=== PATIENT | male | born 1935 | race Caucasian/White ===

== ENCOUNTER 2018-01-17 18:20 | Emergency (ER) | payer OTHER, MEDICARE ==
[~2018-01-17] VITALS: Ht 177.8 cm; Wt 83.9 kg
--- NOTE | 2018-01-17 18:46 | ED GENERAL ADULT ---
History of Present Illness General Chief Complaint: General Adult Stated Complaint: "MEAT WONT GO DOWN THROAT" Source: patient, family Exam Limitations: no limitations Vital Signs & Intake/Output Vital Signs & Intake/Output Vital Signs Date Time Temp Pulse Resp B/P B/P Pulse O2 O2 Flow FiO2 Mean Ox Delivery Rate 01/17 2236 84 16 108/58 95 Room Air 01/17 1955 64 19 145/95 98 Room Air 01/17 1829 98.8 67 18 129/75 97 Room Air ED Intake and Output 01/18 0000 01/17 1200 Intake Total 1000 Output Total Balance 1000 Intake, IV 1000 Patient 185 lb Weight Weight Reported by Patient Measurement Method Allergies Coded Allergies: No Known Allergies (01/17/18) Reconcile Medications Aspirin (Ecotrin*) 81 MG TABLET.DR 1 TAB PO DAILY HEART/BLOOD (Reported) Cholecalciferol (Vitamin D3) (Vitamin D) 1,000 UNIT TABLET 1 TAB PO DAILY SUPPLEMENT (Reported) Cyanocobalamin (Vitamin B-12) 1,000 MCG TABLET 1 TAB PO DAILY SUPPLEMENT ( Reported) Finasteride 5 MG TABLET 1 TAB PO DAILY PROSTATE (Reported) Flaxseed Oil (Flax Oil) 1,000 MG CAPSULE 1 CAP PO DAILY SUPPLEMENT (Reported) Garlic (Garlic Oil) 1,000 MG CAPSULE 1 CAP PO DAILY SUPPLEMENT (Reported) Ibuprofen (Advil) 200 MG CAPSULE 2 CAP PO PRN PAIN (Reported) Lisinopril 5 MG TABLET 1 TAB PO DAILY BP (Reported) Omeprazole 40 MG CAPSULE.DR 1 CAP PO BID GI (Reported) Simvastatin (Simvastatin*) 40 MG TABLET 1 TAB PO QPM CHOLESTEROL (Reported) Tramadol HCl 50 MG TABLET 1 TAB PO BID PAIN (Reported) Turmeric/Turmeric Root Extract (Turmeric 450-50 MG Capsule) (Unknown Strength) CAPSULE (Unknown Dose) PO DAILY SUPPLEMENT (Reported) Triage Note: PT STATES HE HAS A PIECE OF STEAK CAUGHT IN HIS ESPHOGUS ABOUT 1 HOUR AGO. PT STATES HE IS ABLE TO SWOLLOW BUT THE PAIN IS VERY BAD. Triage Nurses Notes Reviewed? yes Onset: Abrupt Duration: hour(s): Timing: recent history HPI: 01/17/18 82-year-old man presents to the emergency department with food impaction. According to the patient he was eating some meat and suddenly had an inability to swallow liquids. He has discomfort in his esophagus but denies chest pain or difficulty breathing. He is sitting upright with a full bowl of saliva that he is been spitting up. He says that he has a history of gastroesophageal reflux and is status post upper endoscopy by Dr. Ray proximally 6 months ago. (Regulo Urrutia DO) Past History Travel History Traveled to [place] past 21 day No Medical History Any Pertinent Medical History? see below for history Gastrointestinal: ACID REFLUX Surgical History Surgical History: non-contributory, multiple orthopedic surgeries Psychosocial History What is your primary language Luxembourger Tobacco Use: Quit >30 days ago ETOH Use: occasional use Illicit Drug Use: denies illicit drug use Family History Hx Contributory? No (Regulo Urrutia DO) Review of Systems Review of Systems Constitutional: Denies: fever. EENTM: Denies: visual changes. Respiratory: Denies: short of breath. Cardiovascular: Denies: chest pain. GI: Reports: see HPI. Genitourinary: Reports: no symptoms. Musculoskeletal: Reports: no symptoms. Skin: Reports: no symptoms. Neurological/Psychological: Reports: no symptoms. Hematologic/Endocrine: Reports: no symptoms. Immunologic/Allergic: Reports: no symptoms. (Regulo Urrutia DO) Physical Exam Physical Exam General Appearance: alert, awake, anxious, moderate distress Head: atraumatic, normal appearance Eyes: Bilateral: normal appearance, PERRL, EOMI. Ears, Nose, Throat: normal pharynx Neck: supple Respiratory: normal breath sounds, chest non-tender, no respiratory distress Cardiovascular: regular rate/rhythm Peripheral Pulses: 4+ radial (R), 4+ radial (L) Gastrointestinal: soft, non-tender Back: normal range of motion Extremities: no edema Neurologic/Psych: no motor/sensory deficits, awake, alert, oriented x 3 Skin: intact, normal color, warm/dry Core Measures ACS in differential dx? No CVA/TIA Diagnosis: No Sepsis Present: No Sepsis Focused Exam Completed? No (Regulo Urrutia DO) Progress Differential Diagnoses I considered the following diagnoses in my evaluation of the patient: [Food impaction, gastroesophageal reflux, peptic ulcer disease] Plan of Care: Current Medications Sig/Gema Start time Last Medication Dose Stop Time Status Admin Nitroglycerin 0.4 MG ONCE ONE 01/18 2000 UNVr 01/17 (Nitrostat) 01/17 Sodium Chloride 1,000 ML ONCE ONE 01/17 1930 AC 01/17 (Normal Saline 0.9%) 01/18 Initial ED EKG: none (Regulo Urrutia DO) Departure Departure Disposition: STILL A PATIENT Condition: Stable Clinical Impression Primary Impression: Food impaction of esophagus Referrals: Oliver NEGRETE,Kaleb Marroquin (PCP/Family) Departure Forms: Customer Survey General Discharge Information Comments The patient was treated with IV fluids and IV glucagon. GI consultation was requested. I spoke with Dr. Recio who will evaluate the patient. The patient was signed out to Dr. Brannon at 7 PM. (Regulo Urrutia DO) Departure Comments 01/17/18, 22:45... pt awake and alert, comfortable, in no discomfort.... pt safe for discharge. (Salud NEGRETE,Norberto Padilla) Critical Care Note Critical Care Note Critical Care Time: 30-74 min (Regulo Urrutia DO)
[2018-01-17] MEDS ORDERED: TRAMADOL HCL50 M1 PO (19:01)
[2018-01-17] MEDS ORDERED: SIMVASTATIN5 M2 PO (19:02)
[2018-01-17] MEDS ORDERED: PANTOPRAZOLE SO40 M1 PO (19:02)
[2018-01-17] MEDS ORDERED: LISINOPRIL5 M1 PO (19:04)
[2018-01-17] MEDS ORDERED: SIMVASTATIN40 M1 PO (19:04)
[2018-01-17] MEDS ORDERED: ASPIRIN EC81 M1 PO (19:04)
[2018-01-17] MEDS ORDERED: OMEPRAZOLE40 M1 PO (19:04)
[2018-01-17] MEDS ORDERED: TURMERIC 450-51 EACH PO (19:05)
[2018-01-17] MEDS ORDERED: GARLIC OIL1000 M1 PO (19:05)
[2018-01-17] MEDS ORDERED: VITAMIN B-121000 MC3 PO (19:06)
[2018-01-17] MEDS ORDERED: VITAMIN D1000 UNIT PO (19:06)
[2018-01-17] MEDS ORDERED: FLAX OIL1000 M1 PO (19:06)
[2018-01-17] MEDS ORDERED: ADVIL200 M1 PO (19:06)
[2018-01-17] MEDS ORDERED: FINASTERIDE5 M1 PO (19:07)
--- NOTE | 2018-01-17 19:41 | Cons- Gastroenterology ---
General Information and HPI Consulting Request Date of Consult: 01/17/18 Requested By: Dalton Urrutia DO Reason for Consult: I was just called by Dr. Urrutia of the [place] [facility] to evaluate dysphagia. Source of Information: patient, family (pt's , Nupur), old records Exam Limitations: fair historian, anxious History of Present Illness: 82 y/o male, HTN, HLD, non-DM, BPH, anxiety, DJD, Vit D def, fair historian, ? TIA in 2012 at [facility] (not certain- no residual, right handed), past hx dysphagia to dry solids x 1 approximately 3 yrs ago, after using an inhaler for pulmonary symptoms. He had never had a food impaction that required endoscopic retrieval. He claimed he had not had dysphagia since, although Dr. Guzman's notes stated otherwise (*see below). He claimed he had never had difficulty swallowing liquids or pills. The patient is an ex-long time pipe smoker, D/C 2012, & denied any significant EtOH, illicit drugs, significant amounts of caffeine, ASA, NSAIDS (although these were listed in the computer), or A/C tx. The patient had been on maintenance Omeprazole BID (? dosage) for hx DU. He denied any hx bleeding disorders. The patient was in his USOH until 5 p.m. today, when he was eating steak & felt a sticking sensation in the mid xiphoid region, followed by localized odynophagia. He was unable to clear secretions and arrived at the [place] [facility] at 6:20 p.m., with the above complaints. Upon arrival, BP 129/75, P 67, R 18, T 98.8, O2 sat RA 97% I advised the ER to give the pt an amp of Glucagon & SL NTG 1/150 x 1 (as BP tolerates), which were given, without relief, & IV: NS. The pt was still unable to clear his secretions at the time of my GI consultation. Patient had falls partial upper teeth, which he had already removed. He denied any CP, SOB, hematemesis, abdominal pain, melena, early satiety, weight loss, fevers, chills, jaundice, pleuritic pain, or hemoptysis. There were no change in bowel habits or rectal bleeding. He denied any head & neck CA, head & neck RT, or thyroid disease. 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 He denied any change in voice or transfer dysphagia. The patient denied any history of GERD, although Dr. Guzman's notes contradicted this, as well. He had never had esophageal manometry. Of note, the pt's M- decased 76, gastric Ca. There is no FHx additional GI Ca, GI disease, or inherited liver disease. Pt's sister- 47, breast Ca. *Previous GI workup, per Dr. Guzman: 01/08/17: BS per Dr. Guzman- normal. 01/14/17: Baseline EGD to D3 with bxs- linear scarring in esophagus at 37 cm, with Z line at 38 cm. Vascular bleb vs. submucosal nodule at 39 cm. Bxs obtained from lower 1/3 esophagus: benign esophageal mucosa, negative EOE. Bxs from proximal & mid-esophagus: benign esophageal mucosa, negative EOE. Questionable portal gastropathy in gastric cardia & fundus, with gastric bxs obtained from antrum, angularis, & fundus: moderate chronic gastritis with IM, negative dysplasia, HP-negative. Patent pylorus. 1 mm clean based punctate DU in distal bulb, with surrounding circumferential flat plaque- bxs: severe chronic & mild acute duodenitis with blunting of villi and GM with rx change, consistent with clinical impression of ulcer, no Ca. *EUS considered, but not done. 05/26/17: Repeat EGD to D3 with bxs per Dr. Guzman for dysphagia & hx DU with GM-normal esophageal mucosa, normal GE junction/Z line, small fixed hiatal hernia, mild corkscrew appearance to the lower 1/3 of the esophagus, consistent with presbyesophagus, patent esophageal lumen, atrophic appearing gastric mucosa , patent pylorus w/o GOO, healing of previously noted tiny DU (bulb), with bxs of duodenal scarring: chronic & focal mild acute inflammation with focal mild villous blunting & focal surface epithelial GM, negative Ca. Incidentally, the patient claimed his baseline & only colonoscopy was done in 2008 (? where) & was "normal". Apparently, by dates, he is due for follow-up surveillance colonoscopy in 2019. Allergies/Medications Allergies: Coded Allergies: No Known Allergies (01/17/18) Home Med List: Aspirin (Ecotrin*) 81 MG TABLET.DR 1 TAB PO DAILY HEART/BLOOD (Reported) Cholecalciferol (Vitamin D3) (Vitamin D) 1,000 UNIT TABLET 1 TAB PO DAILY SUPPLEMENT (Reported) Cyanocobalamin (Vitamin B-12) 1,000 MCG TABLET 1 TAB PO DAILY SUPPLEMENT ( Reported) Finasteride 5 MG TABLET 1 TAB PO DAILY PROSTATE (Reported) Flaxseed Oil (Flax Oil) 1,000 MG CAPSULE 1 CAP PO DAILY SUPPLEMENT (Reported) Garlic (Garlic Oil) 1,000 MG CAPSULE 1 CAP PO DAILY SUPPLEMENT (Reported) Ibuprofen (Advil) 200 MG CAPSULE 2 CAP PO PRN PAIN (Reported) Lisinopril 5 MG TABLET 1 TAB PO DAILY BP (Reported) Omeprazole 40 MG CAPSULE. 1 CAP PO BID GI (Reported) Simvastatin (Simvastatin*) 40 MG TABLET 1 TAB PO QPM CHOLESTEROL (Reported) Tramadol HCl 50 MG TABLET 1 TAB PO BID PAIN (Reported) Turmeric/Turmeric Root Extract (Turmeric 450-50 MG Capsule) (Unknown Strength) CAPSULE (Unknown Dose) PO DAILY SUPPLEMENT (Reported) Current Medications: Current Medications Sig/Gema Start time Last Medication Dose Route Stop Time Status Admin Glucagon 0 .STK-MED ONE 01/17 1933 DC .ROUTE Glucagon 1 MG ONCE ONE 01/17 1930 DC 01/17 N/A 1 UNIT IV 01/17 Nitroglycerin 0.4 MG ONCE ONE 01/18 2000 DC 01/17 SL 01/17 Nitroglycerin 0 .STK-MED ONE 01/18 2000 DC SL Nitroglycerin 0 .STK-MED ONE 01/18 2000 DC SL Sodium Chloride 1,000 ML ONCE ONE 01/17 1930 AC 01/17 IV 01/18 209 193 Past History Travel History Traveled to [place] past 21 day No Medical History Blood Transfusion Hx: No Neurological: TIA ("not sure" 2013-[facility]) EENT: NONE Cardiovascular: hypertension, hyperlipidemia Respiratory: NONE Gastrointestinal: GERD, hiatal hernia, peptic ulcer disease (Hx DU, H. 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 MOTHER, , Age 74; Cause: Gastric cancer. SISTER, , Age 47; Cause: Breast CA. Relation not specified for: gastric cancer Psychosocial History Where Do You Live? Home Who Do You Live With? spouse (Nupur) Services at Home: None Primary Language: Telugu Smoking Status: Former Smoker (pipe) ETOH Use: denies use (rare beer), occasional use Illicit Drug Use: denies illicit drug use Living Will? no Power of Motion Picture Scene Builder/HCP? no Other Social History: to Nupur. 2 sons & 1 dtr- [employer]. Ex-pipe smoker (ages [age]). No cigarettes. Rare beer. No illicit drugs. Switched reg coffee to decaff. 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 Old tattoo. Functional Ability ADLs Independent: dressing, eating, toileting, bathing. Ambulation: independent IADLs Independent: shopping, housework, finances, food prep, telephone, transportation , medication admin. 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 Review of Systems Review of Systems: Full 14 point ROS otherwise noncontributory, and as above. Review of Systems Constitutional: Denies: chills, diaphoresis, fever, malaise, weakness, unexplained weight loss. EENTM: Denies: blurred vision, double vision, visual changes, eye pain, eye drainage, eye tearing, icterus, ear discharge, ear pain, ear redness, hearing changes, nasal congestion, epistaxis, nasal pain, throat pain, throat swelling, mouth pain, tooth pain. Cardiovascular: Denies: chest pain, edema, orthopena, palpitations, peripheral edema, syncope. Respiratory: Reports: sputum production (only after FB impaction). Denies: cough, hemoptysis , orthopnea, short of breath, stridor, wheezing. GI: Denies: no symptoms (food impaction/GERD), abdominal pain, bloating, constipation, diarrhea, distention, bowel incontinence, melena, nausea, bloody stool, changes in stool, vomiting, steatorrhea. Genitourinary: Reports: hesitation (BPH), nocturia (BPH), urgency (BPH). Denies: discharge, dysuria, frequency, hematuria, pain. Musculoskeletal: Reports: joint pain (DJD). Denies: back pain, gout, joint swelling, muscle pain , muscle stiffness, neck pain. Skin: Denies: cysts, change in skin color, change in hair/nails, dryness, erythema, jaundice, lesions, lymphangitis, lumps, moles, rash. Neurological/Psychological: Reports: anxiety. Denies: ataxia, cognitive dysfunction, confusion, depressed, dementia, emotional problems, headache, numbness, paresthesia, pre-existing deficit, petit mal seizures, tingling, tremors, tonic-clonic seizures, unable to move lower ext, unable to move upper ext, weakness. Hematologic/Endocrine: Denies: bruising, bleeding, polyuria, polydipsia. Immunologic/Allergic: Denies: splenectomy, HIV/AIDS, lymphadenopathy. All Other Systems: Reviewed and Negative Exam & Diagnostic Data Vital Signs and I&O Vital Signs Date Time Temp Pulse Resp B/P B/P Pulse O2 O2 Flow FiO2 Mean Ox Delivery Rate 01/175 64 19 145/95 98 Room Air 01/17 1829 98.8 67 18 129/75 97 Room Air Physical Exam: Well-developed, well-nourished, thin elderly male, in mild distress, spitting up secretions. Sclera anicteric. Conjunctiva pink. Oropharynx clear. Poor dentition. No aphthous ulcers. No oral thrush. No stridor. No sinus tenderness. No head & neck or CW crepitus. There is no adenopathy, thyromegaly, or JVD. No peripheral stigmata of inflammatory bowel disease or chronic liver disease on exam. No spiders on the anterior chest wall. No gynecomastia. No CVA tenderness. Lungs: clear to A&P, with slightly prolonged expiratory phase. No wheezing, rales, or rhonchi. Heart exam: regular rate rhythm, S1 and S2, without any murmur. Abdominal exam: normal bowel sounds, soft belly, nontender, without guarding or rebound. No mass. No organomegaly. No fluid shift. No pulsatile mass. No epigastric bruit. Old scars, post LIH. Digital rectal exam: deferred. Extremities: without C, C, or E. +DJD. Old tattoo. Multiple orthopedic scars. No palpable cords. No palmar erythema. No Dupuytren's contractures. Distal pulses 2+ bilaterally. DTRs 2+ bilaterally. Right- handed. CN II-XII intact. Motor 5/5 B/L. Alert and oriented x 3. No tremor. No asterixis. Results Pertinent Lab Results: None Imaging/Other Studies: None Assessment/Plan Assessment/Recommendations: 82 y/o male, HTN, HLD, non-DM, BPH, anxiety, DJD, Vit D def, fair historian, ? TIA in 2012 at [facility] (not certain- no residual, right handed), past hx dysphagia to dry solids x 1 approximately 3 yrs ago, after using an inhaler for pulmonary symptoms. He had never had a food impaction that required endoscopic retrieval. He claimed he had not had dysphagia since, although Dr. Guzman's notes stated otherwise (*see below). He claimed he had never had difficulty swallowing liquids or pills. The patient is an ex-long time pipe smoker, D/C 2012, & denied any significant EtOH, illicit drugs, significant amounts of caffeine, ASA, NSAIDS (although these were listed in the computer), or A/C tx. The patient had been on maintenance Omeprazole BID (? dosage) for hx DU. He denied any hx bleeding disorders. The patient was in his USOH until 5 p.m. today, when he was eating steak & felt a sticking sensation in the mid xiphoid region, followed by localized odynophagia. He was unable to clear secretions and arrived at the [place] ER at 6:20 p.m., with the above complaints. Upon arrival, BP 129/75, P 67, R 18, T 98.8, O2 sat RA 97% I advised the ER to give the pt an amp of Glucagon & SL NTG 1/150 x 1 (as BP tolerates), which were given, without relief, & IV: NS. The pt was still unable to clear his secretions at the time of my GI consultation. Patient had falls partial upper teeth, which he had already removed. He denied any CP, SOB, hematemesis, abdominal pain, melena, early satiety, weight loss, fevers, chills, jaundice, pleuritic pain, or hemoptysis. There was no change in bowel habits, or rectal bleeding. He denied any head & neck CA, head & neck RT, or thyroid disease. 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 He denied any change in voice or transfer dysphagia. The patient denied any history of GERD, although Dr. Guzman's notes contradicted this, as well. He had never had esophageal manometry. Of note, the pt's M- decased 76, gastric Ca. There is no FHx additional GI Ca, GI disease, or inherited liver disease. Pt's sister- 47, breast Ca. *Previous GI workup, per Dr. Guzman: 01/08/17: BS per Dr. Guzman- normal. 01/14/17: Baseline EGD to D3 with bxs- linear scarring in esophagus at 37 cm, with Z line at 38 cm. Vascular bleb vs. submucosal nodule at 39 cm. Bxs obtained from lower 1/3 esophagus: benign esophageal mucosa, negative EOE. Bxs from proximal & mid-esophagus: benign esophageal mucosa, negative EOE. Questionable portal gastropathy in gastric cardia & fundus, with gastric bxs obtained from antrum, angularis, & fundus: moderate chronic gastritis with IM, negative dysplasia, HP-negative. Patent pylorus. 1 mm clean based punctate DU in distal bulb, with surrounding circumferential flat plaque- bxs: severe chronic & mild acute duodenitis with blunting of villi and GM with rx change, consistent with clinical impression of ulcer, no Ca. *EUS considered, but not done. 05/26/17: Repeat EGD to D3 with bxs per Dr. Guzman for dysphagia & hx DU with GM-normal esophageal mucosa, normal GE junction/Z line, small fixed hiatal hernia, mild corkscrew appearance to the lower 1/3 of the esophagus, consistent with presbyesophagus, patent esophageal lumen, atrophic appearing gastric mucosa , patent pylorus w/o GOO, healing of previously noted tiny DU (bulb), with bxs of duodenal scarring: chronic & focal mild acute inflammation with focal mild villous blunting & focal surface epithelial GM, negative Ca. Incidentally, the patient claimed his baseline & only colonoscopy was done in 2008 (? where) & was "normal". Apparently, by dates, he is due for follow-up surveillance colonoscopy in 2019. Past GI workup per Dr. Guzman- as above, post BS & EGD x 2 over the past year, since 12/2016-esophageal biopsies negative for EOE, patent esophageal lumen, *suggestion of presbyesophagus with corkscrew appearance, small hiatal hernia, HP-neg gastritis with hx IM, tiny 1 mm duodenal ulcer in the bulb ( healed). The patient may have an underlying esophageal dysmotility, although this classically gives dysphagia with liquids, especially cold liquids. The patient claimed he remotely had dysphagia to solid food 3 years prior, and claimed he was asymptomatic since, although Dr. Guzman's office notes seemed to contradict this. Additionally, the patient denied any hx of GERD, which Dr. Guzman's office notes also seemed to contradict. He had been maintained on Omeprazole BID. He had never had esophageal manometry. The patient and his Nupur, were told that as the patient was still symptomatic, he would require EGD with attempt at foreign body removal, with the assistance of anesthesiology. They were made aware that he might need prophylactic intubation to protect his airway. There were also told that the purpose of the EGD was to remove the foreign body and not necessarily diagnose the actual reason for his dysphagia, which would have to be further worked up semielectively, as an outpatient. They were also made aware that in the setting of an acute foreign body impaction, the risk of aspiration and/or perforation increases. The risks & benefits of EGD with attempted foreign body removal were discussed with the patient, in the presence of his , Nupur, and he agreed to proceed. Informed consent for the EGD was obtained from the patient. I contacted the nursing loan processing supervisor, who will coordinate the above procedure with [facility] anesthesiology and with the GI nurses ironworker, Kelly. Further recommendations will follow, post EGD. Problem List: 1. Dysphagia 2. Odynophagia 3. Food impaction of esophagus 4. GERD (gastroesophageal reflux disease) 5. Hiatal hernia 6. History of duodenal ulcer 7. Family history of gastric cancer Copies To: Regulo Urrutia DO; Oliver NEGRETE,Kaleb Marroquin; Los NEGRETE,Jayshree Marroquin; Thomas NEGRETE,Norma Dinh Acknowledgment - Thank you for your consult request.
--- NOTE | 2018-01-17 22:21 | Proc Note Endoscopy ---
Endoscopy Procedure Medical History: unchanged Mental Status: alert/oriented Heart/Lung Eval Prior to Sedation: within normal limits Candidate for Sedation? Yes Procedure Date: 01/17/18 Procedure Type: EGD Representative: Ezio Recio MD ASA Classification: III (III-E) Indications: INDX: (*Please refer to this p.m.'s GI consult & previous extensive GI workup, per Dr. Guzman). 82-year-old male with food impaction (steak by history). Instrument: diagnostic gastroscope Meds Received: MAC ( & intubation, per anesthes) Patient's Tolerance: good Complications: none Extent Reached: D3 Procedure: Follow-up upper endoscopy to the third portion of the duodenum, was performed with the Olympus high definition videoendoscope, after obtaining informed consent from the patient, with the bus driver/monitor and pulse oximeter, with the assistance of Dr. Cortez, of [facility], & the GI RNs svp monetization, Kelly, in the [facility], room #20. The patient was prophylactically intubated preop, as per Dr. Cortez, of [facility], to protect his airway. The patient had poor dentition preoperatively. He had removed his partial uppers, prior to coming to the ER. A mouthpiece was placed in the usual fashion to protect the patient's residual teeth. After intubation & sedation by [facility], the patient was placed in the left lateral decubitus position. At this point, the endoscope was advanced from the mouth into the esophagus, using direct visualization technique. The ETT was seen going in between the vocal cords. The proximal esophageal mucosa appeared normal. There were no esophageal rings, webs, lesions, strictures, or ulcers. There was no monilia or vesicles. There was no esophageal ribbing. *Previous esophageal biopsies by Dr. Guzman were negative for EOE. There were some tertiary contractions in the distal half of the esophagus. There was a focal erosion in the distal esophagus at 39 cm, 1 cm above the Z line, which was most likely the location with the food had been. Otherwise, there was no significant esophageal inflammation. The Z line was well demarcated at 40 cm. At the time of the endoscopy, the fluid had already left the esophagus. Repeat esophageal biopsies were deferred, in view of the recent food impaction. A small bolus of yellowish food was seen just below the Z line, in the gastric cardia. It was partially cleared with the use of the disposable brush. There was a scant sliding hiatal hernia pouch, without any Cecil erosions. There were no ectopic islands, nor gross Mao's esophagus. There were no esophageal or gastric varices, nor any Yudi Ballard tear. The verma of the stomach distended normally with air insufflation. Direct and retroflexed views of the stomach were carefully performed. There was nothing endoscopically to suggest gastroparesis or portal gastropathy. Approximately 15% of the mucosa of the gastric cardia & fundus were obscured by the food, which was suctioned as best as possible. The visualized portions of the gastric cardia and fundus appeared normal, as did the lesser curvature, incisura, & body. There were no gastric ulcers or gastric lesions seen in the visualized portions. The gastric antrum appeared normal, except a tiny portion of this was obscured by food in the prepyloric region. The pylorus was patent, without any gastric outlet obstruction or channel ulcer. The duodenal bulb was clean, without any residual DU. The duodenal sweep & third portion of the duodenum appeared normal, without any distal ulcerations, or angiodysplasias. A tiny portion of the duodenal sweep was obscured by what appeared to be vegetable matter. I was not able to see the ampulla with the direct-viewing scope. The folds of the second & third portions of the duodenum were normal in caliber, without any flattening, nodularity, scalloping, or mosaic pattern. No active upper GI bleeding was seen. Documenting photographs were obtained. The patient tolerated the procedure well. He was extubated uneventfully by [facility] postoperatively. There was no head & neck crepitus, nor any chest wall crepitus postoperatively. Impression: 1. Tertiary contractions lower 1/2 of the esophagus, with patent esophageal lumen. 2. Focal erosion in the lower esophagus at 39 cm, 1 cm above the Z line, most likely representing where the food was. The food had already passed into the stomach at the time of the EGD. 3. Z line at 40 cm, with scant hiatal hernia. 4. Otherwise, normal EGD to D3, without any residual DU in the bulb. Approximately 15% of the gastric cardia & fundus were obscured by food. A scant portion of the prepyloric region of the antrum had residual food, as did a small portion of the duodenal sweep. Most likely, the patient has an underlying esophageal dysmotility, also keeping in mind the fact that relatively recent esophageal biopsies were negative for EOE. Recommendations: NPO for now. Maintain Omeprazole BID. When patient returns home, may resume clears po. The patient was told to replace his false teeth. The patient may resume solid foods tomorrow, cutting them into small pieces, along with aspiration precautions. The patient and his , Nupur, were advised to call the office next week and speak with Dr. Guzman. She may want to repeat the EGD under elective conditions. Furthermore, I told the patient and his that he may need esophageal manometry, to rule out an underlying esophageal dysmotility. Consideration could be made for an empiric trial of either calcium channel blockers or nitrates, in lieu of esophageal manometry, but I will defer to Dr. Guzman for this. They have the GI office number. (Documenting photographs were obtained. One set was taken back to the GI suite, & the other was left in the ER folder). The above findings and recommendations were also communicated with Dr. Brannon in the ER, postoperatively. CC: Regulo Urrutia DO; Salud NEGRETE,Norberto Padilla; Olievr NEGRETE,Kaleb Marroquin; Los NEGRETE,Jayshree Marroquin; Thomas NEGRETE,[facility]
[2018-01-17 22:36] VITALS: BP 108/58
== END 2018-01-17 22:54 ==
LOC: ERH 18:20
DX: T18.128A Food in esophagus causing other injury, initial encounter (principal); I10 Essential (primary) hypertension; Z87.891 Personal history of nicotine dependence; Z79.82 Long term (current) use of aspirin
CPT/HCPCS: 96374; 99291; J1610; J3490